=== PATIENT | female | born 1990 | race Caucasian/White ===

== ENCOUNTER 2016-11-26 16:19 | Emergency (ER) | payer OTHER ==
[2016-11-26 18:51] VITALS: BP 122/68
[2016-11-26 19:47] LABS: Hematocrit 40 % (35-47); Hemoglobin 12.6 g/dl (12.0-16.0); Mean Corpuscular HGB Conc 31 g/dl (31-36); Mean Corpuscular Hemoglobin 21 pg (27-31); Mean Corpuscular Volume 66 fL (80-97); Mean Platelet Volume 8 um3 (7.4-10.4); Red Blood Count 6.09 10^6/ul (4.0-5.4); Red Cell Distribution Width 15 % (10.5-15); White Blood Count 8.3 10^3/ul (3.5-10.8)
[2016-11-26 19:55] LABS: Add Diff/Slide Review? Slide Review Added; Comments Flag Yes
[2016-11-26 20:02] LABS: ALT 9 U/L (7-52); AST 13 U/L (13-39); Albumin 5.3 g/dL (3.2-5.2); Alkaline Phosphatase 40 U/L (34-104); Anion Gap 11 mmol/L (2-11); BUN/Creatinine Ratio 13.4 (8-20); Blood Urea Nitrogen 11 mg/dL (6-24); CO2 Carbon Dioxide 21 mmol/L (22-32); Chloride 102 mmol/L (101-111); EGFR African American 110.1 (>60); EGFR Non-African American 85.6 (>60); Globulin 3.3 g/dL (2-4); Glucose 82 mg/dL (70-100); Potassium 3.4 mmol/L (3.5-5.0); Sodium 134 mmol/L (133-145); Total Protein 8.6 g/dL (6.4-8.9)
[2016-11-26 20:16] LABS: Add Path Review? YES; Hypochromasia 1+; Microcytosis 2+
--- NOTE | 2016-11-26 20:18 | ED ---
Austin Rios Benjamin, scribed for Ariel Saab MD on 11/26/16 at 1938 . Dizziness - HPI Summary HPI Summary: 26yo female c/o dizziness and severe KUMAR since yesterday. Pt describes the dizziness as being off-balance. Pt still has symptoms today but milder than yesterday. Pt also reports nausea yesterday. PMHx includes anemia. Pt states that she is currently having her menstrual period. Denies fever. - History Of Current Complaint Chief Complaint: EDDizziness Stated Complaint: HEADACHE/DIZZINESS Time Seen by Provider: 11/26/16 19:24 Hx Obtained From: Patient Onset/Duration: Still Present, Gradually - yesterday Timing: Constant Severity Initially: Moderate Severity Currently: Mild Character: Dizzy - off balance Aggravating Factor(s): Nothing Alleviating Factor(s): Nothing Associated Signs And Symptoms: Positive: Nausea. Negative: Fever PMH/Surg Hx/FS Hx/Imm Hx Endocrine/Hematology History: Reports: Hx Anemia Infectious Disease History: No Infectious Disease History: Denies: Traveled Outside the [place] in Last 30 Days - Family History Known Family History: Positive: Other - anemia Negative: Cardiac Disease, Hypertension, Diabetes - Social History Occupation: Student Lives: With Family - significant other Alcohol Use: None Hx Substance Use: No Substance Use Type: Reports: None Smoking Status (MU): Never Smoked Tobacco Review of Systems Constitutional: Negative Eyes: Negative ENT: Negative Cardiovascular: Negative Respiratory: Negative Positive: Nausea Genitourinary: Negative Musculoskeletal: Negative Skin: Negative Neurological: Other - dizziness Positive: Headache Psychological: Normal All Other Systems Reviewed And Are Negative: Yes Physical Exam Triage Information Reviewed: Yes Vital Signs On Initial Exam: Initial Vitals Temp Pulse Resp Pulse Ox 97.8 F 67 20 100 11/26/16 16:39 11/26/16 16:39 11/26/16 16:39 11/26/16 16:39 Vital Signs Reviewed: Yes Appearance: Positive: Well-Appearing, No Pain Distress - anxious Skin: Positive: Warm Head/Face: Positive: Normal Head/Face Inspection Eyes: Positive: EOMI, MARICRUZ, Conjunctiva Clear ENT: Positive: Hearing grossly normal Neck: Positive: Supple, Nontender Respiratory/Lung Sounds: Positive: Clear to Auscultation, Breath Sounds Present Cardiovascular: Positive: RRR Abdomen Description: Positive: Nontender, Soft Musculoskeletal: Positive: Strength/ROM Intact Neurological: Positive: Sensory/Motor Intact, Alert, Oriented to Person Place, Time, Normal Gait Psychiatric: Positive: Affect/Mood Appropriate Diagnostics - Vital Signs Vital Signs Temp Pulse Resp BP Pulse Ox 11/26/16 18:50 98.9 F 81 16 122/68 100 11/26/16 16:41 98.2 F 85 20 139/68 100 11/26/16 16:39 97.8 F 67 20 100 - Laboratory Lab Results: Lab Results 11/26/16 11/26/16 Range/Units 19:38 19:38 WBC 8.3 (3.5-10.8) 10^3/ul RBC 6.09 H (4.0-5.4) 10^6/ul Hgb 12.6 (12.0-16.0) g/dl Hct 40 (35-47) % MCV 66 L (80-97) fL MCH 21 L (27-31) pg MCHC 31 (31-36) g/dl RDW 15 (10.5-15) % Plt Count 279 (150-450) 10^3/ul MPV 8 (7.4-10.4) um3 Neut % (Auto) 46.9 (38-83) % Lymph % (Auto) 47.2 H (25-47) % [place] % (Auto) 4.3 (1-9) % Eos % (Auto) 0.8 (0-6) % Baso % (Auto) 0.8 (0-2) % Absolute Neuts (auto) 3.9 (1.5-7.7) 10^3/ul Absolute Lymphs (auto) 3.9 (1.0-4.8) 10^3/ul Absolute Monos (auto) 0.4 (0-0.8) 10^3/ul Absolute Eos (auto) 0.1 (0-0.6) 10^3/ul Absolute Basos (auto) 0.1 (0-0.2) 10^3/ul Absolute Nucleated RBC 0.01 10^3/ul Nucleated RBC % 0.1 Normal RBC Morphology Not Reportable Hypochromasia 1+ Microcytosis 2+ Elliptocytes 1+ Hem Pathologist Commnt Pending Sodium 134 (133-145) mmol/L Potassium 3.4 L (3.5-5.0) mmol/L Chloride 102 (101-111) mmol/L Carbon Dioxide 21 L (22-32) mmol/L Anion Gap 11 (2-11) mmol/L BUN 11 (6-24) mg/dL Creatinine 0.82 (0.51-0.95) mg/dL Est GFR ( Amer) 110.1 (>60) Est GFR (Non-Af Amer) 85.6 (>60) BUN/Creatinine Ratio 13.4 (8-20) Glucose 82 (70-100) mg/dL Calcium 10.0 (8.6-10.3) mg/dL Total Bilirubin 0.50 (0.2-1.0) mg/dL AST 13 (13-39) U/L ALT 9 (7-52) U/L Alkaline Phosphatase 40 (34-104) U/L Total Protein 8.6 (6.4-8.9) g/dL Albumin 5.3 H (3.2-5.2) g/dL Globulin 3.3 (2-4) g/dL Albumin/Globulin Ratio 1.6 (1-3) Beta HCG, Quant < 0.60 mIU/mL Result Diagrams: 11/26/16 19:38 11/26/16 19:38 Lab Statement: Any lab studies that have been ordered have been reviewed, and results considered in the medical decision making process. - CT Brain CT CT Interpretation: No Acute Changes CT Interpretation Completed By: Radiologist - EKG 1942. Cardiac Rate: Bradycardia - 59bpm EKG Rhythm: Sinus Bradycardia ST Segment: Normal Ectopy: None Re-Evaluation - Re-Evaluation First Eval Re-Evaluation Time: 20:39 Comment: Discussed lab and imaging results with the pt, as well as pt's course of treatment and disposition. Dizzy Course/Dx - Diagnoses Provider Diagnoses: Dizziness Discharge - Discharge Plan Condition: Stable Disposition: HOME Patient Education Materials: Dizziness (ED) Referrals: Non Staff,Doctor [Primary Care Provider] - The documentation as recorded by the Austin wade Benjamin accurately reflects the service I personally performed and the decisions made by me, Ariel Saab MD.
--- NOTE | 2016-11-26 20:34 | RAD ---
HISTORY: Dizziness COMPARISONS: None TECHNIQUE: Multiple contiguous axial CT scans were obtained of the head without intravenous contrast. FINDINGS: HEMORRHAGE/INFARCT: There is no hemorrhage or acute infarct. MASSES/SHIFT: There is no mass or shift. EXTRA-AXIAL SPACES: There are no extra-axial fluid collections. SULCI AND VENTRICLES: The sulci and ventricles are normal in size and position for the patient's stated age. CEREBRUM: There are no focal parenchymal abnormalities. BRAINSTEM: There are no focal parenchymal abnormalities. CEREBELLUM: There are no focal parenchymal abnormalities. VESSELS: The vessels are grossly normal. PARANASAL SINUSES: The paranasal sinuses are clear. ORBITS: The orbits are unremarkable. BONES AND SOFT TISSUE: No bone or soft tissue abnormalities are noted. OTHER: None IMPRESSION: NO ACUTE INTRACRANIAL PATHOLOGY.
== END 2016-11-26 20:45 | disposition home or self-care (01) ==
LOC: ED 16:19
DX: R42 Dizziness and giddiness (principal); R51 Headache; R11.0 Nausea
CPT/HCPCS: 36415; 70450; 80053; 84702; 85025; 85060; 93005; 99282